=== PATIENT | female | born 1970 | race Caucasian/White ===

== ENCOUNTER 2018-05-25 17:22 | Emergency (ER) | payer OTHER ==
[2018-05-25] MEDS ORDERED: Sodium Chloride 0.9% 1,000 ML IV ONE (17:56)
--- NOTE | 2018-05-25 18:02 | ED Physician Chart ---
ED Chief Complaint/HPI - Patient Information Date Seen:: 05/25/18 Time Seen:: 17:40 Chief Complaint:: Abdominal Pain History of Present Illness:: onset x 2 days of intermittent, lower, crampy abdominal pain; pt denies trauma, LOC, ALOC, AMS, H/As, S/T, neck pain, cough, C/P, SOB, A/N/V/D/C, bleeding, VB, VD, fever, chills, or urinary s/s; pt is 2 years post-menopausal; pt denies ; pt is eating and is urinating well; pt last urinated one hour ADMISSIONS CLINICIAN Allergies:: Allergies Allergy/AdvReac Type Severity Reaction Status Date / Time No Known Allergies Allergy Verified 05/25/18 17:38 Vitals:: Vital Signs - 8 hr 05/25/18 17:38 Temp 99.5 F HR 95 RR 16 BP 119/75 O2 Sat % 97 Historian:: Patient, Family Member Review:: Nurse's Note Reviewed <[place] - Last Filed: 05/25/18 19:05> - Patient Information Allergies:: Allergies Allergy/AdvReac Type Severity Reaction Status Date / Time No Known Allergies Allergy Verified 05/25/18 17:38 Vitals:: Vital Signs - 8 hr 05/25/18 05/25/18 17:38 18:30 Temp 99.5 F 98.9 F HR 95 88 RR 16 17 BP 119/75 123/65 O2 Sat % 97 100 <Praveen Bueno - Last Filed: 05/25/18 19:55> ED Review of Systems - Review of Systems General/Constitutional: No fever, No chills, No weight loss, No weakness, No diaphoresis, No edema, No loss of appetite Skin: No skin lesions, No rash, No bruising Head: No headache, No light-headedness Eyes: No loss of vision, No pain, No diplopia ENT: No earache, No nasal drainage, No sore throat, No tinnitus Neck: No neck pain, No swelling, No thyromegaly, No stiffness, No mass noted Cardio Vascular: No chest pain, No palpitations, No PND, No orthopnea, No edema Pulmonary: No SOB, No cough, No sputum, No wheezing GI: No nausea, No vomiting, No diarrhea, Pain, No melena, No hematochezia, No constipation, No hematemesis G/U: No dysuria, No frequency, No hematuria Telecasting Engineer: No vaginal discharge, No abnormal vaginal bleed, No contraction Musculoskeletal: No bone or joint pain, No back pain, No muscle pain Endocrine: No polyuria, No polydipsia Psychiatric: No prior psych history, No depression, No anxiety, No suicidal ideation, No homicidal ideation, No auditory hallucination, No visual hallucination Hematopoietic: No bruising, No lymphadenopathy Allergic/Immuno: No urticaria, No angioedema Neurological: No syncope, No focal symptoms, No weakness, No paresthesia, No headache, No seizure, No dizziness, No confusion, No vertigo <MerlenejillLake - Last Filed: 05/25/18 19:05> ED Past Medical History - Past Medical History Obtainable: Yes Past Medical History: Thyroid disorder, Arthritis Family History: HTN Social History: Non Smoker, No Alcohol, No Drug Use, Surgical History: None Psychiatricy History: None Medication: Reviewed <MerleneradhajocelynLake [facility] Filed: 05/25/18 19:05> Family Medical History - Family Member Mother History Unknown: Yes <MichaelLake Filed: 05/25/18 19:05> ED Physical Exam - Physical Examination General/Constitutional: Awake, Well-developed, well-nourished, Alert, No distress, GCS 15, Non-toxic appearing, Ambulatory Head: Atraumatic Eyes: Lids, conjuctiva normal, PERRL, EOMI Skin: Nl inspection, No rash, No skin lesions, No ecchymosis, Well hydrated, No lymphadenopathy ENMT: External ears, nose nl, TM canals nl, Nasal exam nl, Lips, teeth, gums nl , Oropharynx nl, Tonsils nl Neck: Nontender, Full ROM w/o pain, No JVD, No nuchal rigidity, No bruit, No mass, No stridor Respiratory: Nl effort/Exclusion, Clear to Auscultation, No Wheeze/Rhonchi/Rales Cardio Vascular: RRR, No murmur, gallop, rubs, NL S1 S2, Carotid/Femoral/Distal pulses equal bilaterally GI: No tenderness/rebounding/guarding, No organomegaly, No hernia, Normal BS's, Nondistended, No mass/bruits, No McBurney tenderness : No CVA tenderness Extremities: No tenderness or effusion, Full ROM, normal strength in all extremities, No edema, Normal digits & nails Neuro/Psych: Alert/oriented, DTR's symmetric, Normal sensory exam, Normal motor strength, Judgement/insight normal, Mood normal, Normal gait, No focal deficits Misc: Normal back, No paraspinal tenderness <[place] - Last Filed: 05/25/18 19:05> ED Labs/Radiology/EKG Results - Lab Results Comments:: Reviewed - EKG Interpretations EKG Time:: 18:00 Rate & Rhythm: 74; NSR Comments:: non-specific st-t changes <[place] - Last Filed: 05/25/18 19:05> - Lab Results Results: Laboratory Tests 05/25/18 05/25/18 05/25/18 17:40 18:10 18:10 WBC 10.0 RBC 4.02 Hgb 12.6 Hct 37.0 L MCV 92.1 MCH 31.3 H MCHC Differential 34.0 RDW 12.0 Plt Count 286 MPV 7.9 Neutrophils % 77.9 Lymphocytes % 10.6 L Monocytes % 10.2 H Eosinophils % 0.8 Basophils % 0.5 PT 9.8 INR 0.94 Sodium Potassium Chloride Carbon Dioxide Anion Gap BUN Creatinine Est GFR ( Amer) Est GFR (Non-Af Amer) BUN/Creatinine Ratio Glucose Calcium Total Bilirubin AST ALT Alkaline Phosphatase Creatine Kinase Troponin I B-Natriuretic Peptide Total Protein Albumin Globulin Albumin/Globulin Ratio Triglycerides Cholesterol LDL Cholesterol Direct HDL Cholesterol Amylase Lipase Serum , Qual Urine Source CLEAN C Urine Color YELLOW Urine Clarity CLEAR Urine pH 6.0 Ur Specific [place] <= 1.005 Urine Protein NEGATIVE Urine Glucose (UA) NEGATIVE Urine Ketones NEGATIVE Urine Blood SMALL H Urine Nitrate NEGATIVE Urine Bilirubin NEGATIVE Urine Urobilinogen 0.2 Ur Leukocyte Esterase SMALL H Urine RBC 2-5 Urine WBC 6-10 H Ur Epithelial Cells MODERATE Urine Bacteria 1+ H 05/25/18 05/25/18 05/25/18 18:10 18:10 18:10 WBC RBC Hgb Hct MCV MCH MCHC Differential RDW Plt Count MPV Neutrophils % Lymphocytes % Monocytes % Eosinophils % Basophils % PT INR Sodium 137 Potassium 3.6 Chloride 106 Carbon Dioxide 21.9 Anion Gap 12.7 BUN 9 Creatinine 0.6 Est GFR ( Amer) > 60.0 Est GFR (Non-Af Amer) > 60.0 BUN/Creatinine Ratio 15.0 Glucose 95 Calcium 9.2 Total Bilirubin 0.6 AST 48 H ALT 46 Alkaline Phosphatase 106 H Creatine Kinase 61 Troponin I 0.01 B-Natriuretic Peptide 46.3 Total Protein 7.0 Albumin 3.8 Globulin 3.2 Albumin/Globulin Ratio 1.2 Triglycerides 44 Cholesterol 168 LDL Cholesterol Direct 81 HDL Cholesterol 63 Amylase 60 Lipase 21 Serum , Qual Urine Source Urine Color Urine Clarity Urine pH Ur Specific [place] Urine Protein Urine Glucose (UA) Urine Ketones Urine Blood Urine Nitrate Urine Bilirubin Urine Urobilinogen Ur Leukocyte Esterase Urine RBC Urine WBC Ur Epithelial Cells Urine Bacteria 05/25/18 18:10 WBC RBC Hgb Hct MCV MCH MCHC Differential RDW Plt Count MPV Neutrophils % Lymphocytes % Monocytes % Eosinophils % Basophils % PT INR Sodium Potassium Chloride Carbon Dioxide Anion Gap BUN Creatinine Est GFR ( Amer) Est GFR (Non-Af Amer) BUN/Creatinine Ratio Glucose Calcium Total Bilirubin AST ALT Alkaline Phosphatase Creatine Kinase Troponin I B-Natriuretic Peptide Total Protein Albumin Globulin Albumin/Globulin Ratio Triglycerides Cholesterol LDL Cholesterol Direct HDL Cholesterol Amylase Lipase Serum , Qual NEGATIVE Urine Source Urine Color Urine Clarity Urine pH Ur Specific [place] Urine Protein Urine Glucose (UA) Urine Ketones Urine Blood Urine Nitrate Urine Bilirubin Urine Urobilinogen Ur Leukocyte Esterase Urine RBC Urine WBC Ur Epithelial Cells Urine Bacteria <Praveen Bueno - Last Filed: 05/25/18 19:55> ED Septic Shock - . Is Septic Shock (SBP<90, OR Lactate>4 mmol\L) present?: No - <6hrs of presentation: Vital Signs: Vital Signs - 8 hr 05/25/18 17:38 Temp 99.5 F HR 95 RR 16 BP 119/75 O2 Sat % 97 <[place] - Last Filed: 05/25/18 19:05> - <6hrs of presentation: Vital Signs: Vital Signs - 8 hr 05/25/18 05/25/18 17:38 18:30 Temp 99.5 F 98.9 F HR 95 88 RR 16 17 BP 119/75 123/65 O2 Sat % 97 100 <Praveen Bueno - Last Filed: 05/25/18 19:55> ED Reassessment (Disposition) - Reassessment Reassessment Condition:: Improved - Diagnosis Diagnosis:: Abdominal Pain; Hematuria; UTI <[place] - Last Filed: 05/25/18 19:05> - Aftercare/Follow up Instructions Aftercare/Follow-Up Instructions:: Counseled pt regarding lab results/diagnosis & need follow up Medication Prescribed:: KEFLEX DOXY PT REFUSED ADMISSION WBC IS 10.[address] ABD PELVIS SHOWED DIVERTICULITIS AND LABS SHOWED UTI PT GIVEN FLUIDS ROCEPHIN AND MORPHINE FOR PAIN PT TO F/U WITH GI RX KEFLEX AND DOXYCYCLINE - Patient Disposition Discharge/Transfer:: Home <Praveen Bueno - Last Filed: 05/25/18 19:55>
[2018-05-25 18:18] LABS: % BASOPHILS 0.5 % (0.0-2.0); % EOSINOPHILS 0.8 % (0.0-5.0); % LYMPHOCYTES 10.6 % (20.0-50.0); % MONOCYTES 10.2 % (2.0-10.0); % NEUTROPHILS 77.9 % (40.0-80.0); EOSINOPHILE ABSOLUTE 0.1 Th/cmm (0.1-0.4); HEMOGLOBIN 12.6 gm/dL (12-16); LYMPHOCYTE ABSOLUTE 1.1 Th/cmm (1.5-3.0); MEAN CELL VOLUME 92.1 fl (81-100); MEAN CORPUSCULAR HEMOGLOBIN 31.3 pg (27.0-31.0); MEAN PLATELET VOLUME 7.9 fl; NEUTROPHILE ABSOLUTE 7.8 Th/cmm (1.8-8.0); PLATELET COUNT 286 Th/cmm (150-400); RED BLOOD COUNT 4.02 Mil/cmm (3.80-5.10)
[2018-05-25 18:26] LABS: URINE SOURCE CLEAN C
[2018-05-25 18:28] LABS: URINE BILIRUBIN NEGATIVE (NEGATIVE); URINE BLOOD SMALL (NEGATIVE); URINE GLUCOSE (UA) NEGATIVE (NEGATIVE); URINE KETONE NEGATIVE (NEGATIVE); URINE LEUKOCYTE ESTERASE SMALL (NEGATIVE); URINE MICROSCOPIC INDICATED? YES; URINE NITRATE NEGATIVE (NEGATIVE); URINE PROTEIN NEGATIVE (NEGATIVE); URINE UROBILINOGEN 0.2 E.U./dL (0.2 - 1.0)
[2018-05-25 18:30] LABS: URINE COLOR YELLOW
[2018-05-25 18:31] LABS: URINE CLARITY CLEAR (CLEAR)
[2018-05-25 18:33] LABS: INR 0.94 (0.5-1.4); PROTHROMBIN TIME (TEST) 9.8 SECONDS (9.5-11.5)
[2018-05-25 18:33] LABS: URINE BACTERIA 1+ /hpf (NONE SEEN); URINE EPITHELIAL CELLS MODERATE /lpf (FEW)
[2018-05-25 18:36] LABS: ALB/GLOB RATIO 1.2 (1.0-1.8); ALBUMIN 3.8 gm/dL (3.7-5.3); ALKALINE PHOSPHATASE 106 U/L (34-104); AMYLASE SERUM 60 U/L (29-103); ANION GAP 12.7 (7.0-16.0); BILIRUBIN,TOTAL 0.6 mg/dL (0.3-1.0); BUN - UREA NITROGEN 9 mg/dL (7-25); CALCIUM SERUM 9.2 mg/dL (8.6-10.3); CARBON DIOXIDE 21.9 mEq/L (21.0-31.0); CHLORIDE 106 mEq/L (98-107); CHOLESTEROL 168 mg/dL (<200); CREATININE - SERUM 0.6 mg/dL (0.6-1.2); CREATININE KINASE 61 U/L (30-223); GFR AFRICAN-AMERICAN > 60.0 ml/min (>90); GFR NON AFRICAN-AMERICAN > 60.0 ml/min; GLUCOSE 95 mg/dL (70-105); HDL -HIGH DENSITY LIPOPROTEIN 63 mg/dL (23-92); LIPASE 21 U/L (11-82); POTASSIUM SERUM 3.6 mEq/L (3.5-5.1); SGOT 48 U/L (13-39); SGPT/ALT 46 U/L (7-52); SODIUM SERUM 137 mEq/L (136-145); TRIGLYCERIDES 44 mg/dL (<150)
[2018-05-25] MEDS ORDERED: cefTRIAXone 1 GM in Sodium Chloride 0.9% 50 ML IV ONE (19:10)
[2018-05-25] MEDS ORDERED: Morphine Sulfate 2 mg/mL 1mL Syr ONE (19:38)
[2018-05-25] MEDS ORDERED: Morphine Sulfate 2 mg/mL 1mL Syr IVP STA (19:40)
--- NOTE | 2018-05-26 08:20 | Diagnostic Imaging Report ---
Exam: CT examination of the abdomen pelvis. HISTORY: Abdominal pain rule out appendicitis Total DLP equals 631 CTDI equals 13.2. Findings: Multiple contiguous thin section of the abdomen pelvis obtained without the administration of oral or intravenous contrast material from lower thorax to pubic symphysis. No prior studies available for comparison. The study demonstrates normal aeration of lung parenchyma the bases. The liver and spleen intact. There is evidence of splenomegaly. The pancreas is normal. Adrenal glands are normal. The kidneys demonstrate no evidence of obstructive uropathy or nephrolithiasis. The gallbladder is intact. The appendix is normal. There is evidence for extensive induration of mesentery throughout the lower pelvic area with extensive diverticular disease of sigmoid colon and diverticulitis. The uterus is normal. Urinary bladder distended. Small amount of free fluid is noted in cul-de-sac, most likely physiological. Bony structures intact. IMPRESSION: Acute diverticulitis of sigmoid colon. Unremarkable examination appendix.
== END 2018-05-25 20:10 | disposition home or self-care (01) ==
LOC: ER 17:22
DX: N39.0 Urinary tract infection, site not specified (principal); E07.9 Disorder of thyroid, unspecified; M19.90 Unspecified osteoarthritis, unspecified site
CPT/HCPCS: 99285; 96365; 96375; 93005; 74176; 84484; 83880; 36415; 85025; 85610; 87086; 81001; 82150; 82550; 84703; 83690; 80053; 80061; J2270; J0696; J7030